=== PATIENT | female | born 1960 | race Caucasian/White ===

== ENCOUNTER 2017-02-04 15:55 | Emergency (ER) | payer OTHER ==
[~2017-02-04] VITALS: Ht 160 cm; Wt 74.2 kg
[2017-02-04] MEDS ORDERED: PLEASE ENTER ALLERGIES MC SCH ×2 (16:30)
[2017-02-04] MEDS ORDERED: SODIUM CHLORIDE FLUSH 10ML SYR IVF ONE (16:30)
[2017-02-04] MEDS ORDERED: ONDANSETRON 2MG/ML, 2ML IVPush ONE (16:30)
[2017-02-04] MEDS ORDERED: MORPHINE SULFATE 4 MG/ML, 1ML IVPush PRN (16:30)
[2017-02-04] MEDS ORDERED: SODIUM CHLORIDE 0.9% 1,000ML IVBOLUS ONE (16:30)
[2017-02-04 16:48] LABS: HEMATOCRIT 43.6 % (34.6-47.8); HEMOGLOBIN 14.9 g/dL (11.7-16.4); WHITE BLOOD COUNT 8.5 x10^3/uL (3.4-10)
[2017-02-04 17:00] LABS: BLOOD UREA NITROGEN 9 mg/dL (7-18)
[2017-02-04 17:03] LABS: ASPARTATE AMINO TRANSFERASE 15 U/L (15-37)
[2017-02-04 19:29] VITALS: BP 138/81
== END 2017-02-04 19:32 | disposition home or self-care (01) ==
LOC: ED 19:26
DX: R10.32 Left lower quadrant pain (principal)
CPT/HCPCS: 36415; 76700; 80053; 81003; 83690; 85025; 99285